=== PATIENT | female | born 1980 | race Caucasian/White ===

== ENCOUNTER 2020-08-17 19:05 | Emergency (ER) | payer OTHER ==
[~2020-08-17 19:05] MED LIST: BENTYL 20MG TAB20 MG PO; FLONASE 0.05% N16 GM; IBU400 MG PO; TESSALON PERLE100 MG PO; ZOFRAN 4 MG TAB4 MG PO; ZOFRAN4 MG PO
[2020-08-17 21:01] LABS: RED BLOOD COUNT 4.89 M/UL (4.00-5.10); WHITE BLOOD COUNT 13.3 K/UL (4.5-11.0)
[2020-08-17 21:16] LABS: BUN/CREATININE RATIO 34 (0-10)
[2020-08-17] MEDS ORDERED: VENTOLIN HFA 66.7 GM INH (22:52)
[2020-08-17] MEDS ORDERED: TESSALON PERLE100 MG PO (22:52)
[2020-08-17] MEDS ORDERED: PREDNISONE 50 M50 MG PO (22:52)
== END 2020-08-18 00:20 | disposition home or self-care (01) ==
LOC: ER1 19:05
PROVIDERS: Physician Assistant
DX: J06.9 Acute upper respiratory infection, unspecified (principal); R11.2 Nausea with vomiting, unspecified; R42 Dizziness and giddiness; Z20.822 Contact with and (suspected) exposure to COVID-19; Z87.442 Personal history of urinary calculi; Z90.49 Acquired absence of other specified parts of digestive tract; Z88.0 Allergy status to penicillin
CPT/HCPCS: 0240U; 36415; 71045; 80053; 82550; 82553; 83605; 83690; 83735; 83874; 84484; 85025; 85652; 86140; 87040; 93005; 96374; 96375; 99284; J1885; J2405

== ENCOUNTER 2020-09-16 06:22 | Emergency (ER) | payer OTHER ==
[~2020-09-16 06:22] MED LIST changes: +PREDNISONE 50 M50 MG PO; +VENTOLIN HFA 66.7 GM INH
[2020-09-16 08:24] LABS: HEMOGLOBIN 13.3 gm/dl (12.3-15.3); RED BLOOD COUNT 4.36 M/UL (4.00-5.10); WHITE BLOOD COUNT 10.7 K/UL (4.5-11.0)
[2020-09-16 08:44] LABS: BUN/CREATININE RATIO 26 (0-10)
[2020-09-16] MEDS ORDERED: HYDROCODON-ACE1 EAC4 PO (11:02)
[2020-09-16] MEDS ORDERED: BACTROBAN OINT22 GM EXT (11:05)
== END 2020-09-16 11:30 | disposition home or self-care (01) ==
LOC: ER1 06:22
PROVIDERS: Emergency Medicine
DX: S13.4XXA Sprain of ligaments of cervical spine, initial encounter (principal); S30.1XXA Contusion of abdominal wall, initial encounter; S80.11XA Contusion of right lower leg, initial encounter; S60.811A Abrasion of right wrist, initial encounter; S60.511A Abrasion of right hand, initial encounter; Z23 Encounter for immunization; F17.290 Nicotine dependence, other tobacco product, uncomplicated; V49.40XA Driver injured in collision with unspecified motor vehicles in traffic accident, initial encounter
CPT/HCPCS: 29125; 70450; 71046; 72125; 73110; 73130; 73590; 80053; 81001; 82550; 82553; 83874; 84484; 84703; 85025; 90471; 90715; 96374; 96375; 99284; J2270; J2405; Q9967

== ENCOUNTER 2021-06-03 06:23 | Emergency (ER) | payer SELFPAY ==
[~2021-06-03 06:23] MED LIST changes: +BACTROBAN OINT22 GM EXT; +HYDROCODON-ACE1 EAC4 PO
[2021-06-03 07:43] LABS: HEMOGLOBIN 13.4 gm/dl (12.3-15.3); RED BLOOD COUNT 4.59 M/UL (4.00-5.10); WHITE BLOOD COUNT 10.3 K/UL (4.5-11.0)
[2021-06-03 08:05] LABS: BUN/CREATININE RATIO 21 (0-10)
[2021-06-03] MEDS ORDERED: ZOFRAN ODT 4 MG4 MG GT (10:17)
== END 2021-06-03 10:40 | disposition home or self-care (01) ==
LOC: ER1 06:23
PROVIDERS: Family Medicine
DX: R55 Syncope and collapse (principal); R11.2 Nausea with vomiting, unspecified; Z90.710 Acquired absence of both cervix and uterus; F17.290 Nicotine dependence, other tobacco product, uncomplicated
CPT/HCPCS: 70450; 80053; 81001; 82550; 82553; 83690; 84484; 85025; 93005; 96374; 99284; J2405; J7030

== ENCOUNTER 2021-08-07 13:03 | Inpatient (IN) | payer BC ==
[~2021-08-07] VITALS: Ht 160 cm; Wt 70.3 kg
[~2021-08-07 13:03] MED LIST changes: +ZOFRAN ODT 4 MG4 MG GT
[2021-08-07 13:31] LABS: HEMOGLOBIN 13.9 gm/dl (12.3-15.3); RED BLOOD COUNT 4.57 M/UL (4.00-5.10); WHITE BLOOD COUNT 9.5 K/UL (4.5-11.0)
[2021-08-08 04:44] LABS: WHITE BLOOD COUNT 10.4 K/UL (4.5-11.0)
[2021-08-08 04:45] LABS: HEMOGLOBIN 11.6 gm/dl (12.3-15.3); RED BLOOD COUNT 3.92 M/UL (4.00-5.10)
[2021-08-08 04:58] LABS: BUN/CREATININE RATIO 32 (0-10)
--- NOTE | 2021-08-08 15:51 | NUR ---
PT IS RESTING QUIETLY AT THIS TIME, DENIES NEEDS OR C/O AT THIS TIME.
[2021-08-09 05:56] LABS: HEMOGLOBIN 11.9 gm/dl (12.3-15.3); RED BLOOD COUNT 3.97 M/UL (4.00-5.10); WHITE BLOOD COUNT 10.5 K/UL (4.5-11.0)
[2021-08-09 06:16] LABS: BUN/CREATININE RATIO 24 (0-10)
--- NOTE | 2021-08-10 05:00 | NUR ---
PATIENT EXPERIENCING MORE PAIN THAN USUAL THIS SHIFT. I APPLIED A HEATING PATCH (THE ONES USED FOR BACKS) TO HER LOWER ABDOMEN WELL A WARM BLANKET. THIS BROUGHT HER SOME RELIEF ALONG WITH PAIN MEDICATION. THE PATIENT WAS ABLE TO GET SOME SLEEP.
[2021-08-10 06:51] LABS: RED BLOOD COUNT 4.01 M/UL (4.00-5.10); WHITE BLOOD COUNT 10.6 K/UL (4.5-11.0)
[2021-08-10 07:21] LABS: BUN/CREATININE RATIO 16 (0-10)
[2021-08-10] MEDS ORDERED: HYDROCODON-ACE1 EAC4 PO (09:30)
[2021-08-10] MEDS ORDERED: METHOCARBAMOL500 MG PO (09:30)
== END 2021-08-10 13:10 | disposition home or self-care (01) | DRG 690 ==
LOC: ER1 13:03 → MED SURG 4 16:32 → CDU 16:32 → MED SURG 4 21:48
PROVIDERS: Internal Medicine; Physician Assistant; ADMIT Internal Medicine
DX: N10 Acute pyelonephritis (principal); Z16.12 Extended spectrum beta lactamase (ESBL) resistance; Z20.822 Contact with and (suspected) exposure to COVID-19; B96.20 Unspecified Escherichia coli [E. coli] as the cause of diseases classified elsewhere; N83.201 Unspecified ovarian cyst, right side; F17.210 Nicotine dependence, cigarettes, uncomplicated; R31.9 Hematuria, unspecified; R39.11 Hesitancy of micturition; R11.0 Nausea; Z88.1 Allergy status to other antibiotic agents; Z88.0 Allergy status to penicillin; Z90.49 Acquired absence of other specified parts of digestive tract; Z74.01 Bed confinement status
CPT/HCPCS: 36415; 80048; 81001; 85025; 85027; 87040; 96372; 96374; 96375; 99285; J1335; J1650; J1885; J2270; J2405; J7030; J7120; U0002

== ENCOUNTER → 2021-08-11 | Outpatient (CLI) | payer BC, OTHER ==
[~2021-08-11] VITALS: Ht 157.5 cm; Wt 69.9 kg
[~2021-08-11] MED LIST changes: +METHOCARBAMOL500 MG PO
== END ==
LOC: OPSV 14:00
DX: N12 Tubulo-interstitial nephritis, not specified as acute or chronic (principal)
CPT/HCPCS: 96372; J1335

== ENCOUNTER → 2021-08-12 | Outpatient (CLI) | payer BC, OTHER ==
[~2021-08-12] VITALS: Ht 157.5 cm; Wt 69.9 kg
== END ==
LOC: OPSV 10:02
DX: N12 Tubulo-interstitial nephritis, not specified as acute or chronic (principal)
CPT/HCPCS: 96372; J1335

== ENCOUNTER → 2021-08-13 | Outpatient (CLI) | payer BC, OTHER | LOC: OPSV 07:25 | DX: Z53.9 Procedure and treatment not carried out, unspecified reason (principal) | CPT/HCPCS: 96372; J1335 ==

== ENCOUNTER → 2021-08-14 | Outpatient (CLI) | payer BC, OTHER ==
[~2021-08-14] VITALS: Ht 160 cm; Wt 70.3 kg
== END ==
LOC: EROP 08:13
DX: N12 Tubulo-interstitial nephritis, not specified as acute or chronic (principal); Z88.0 Allergy status to penicillin; Z88.1 Allergy status to other antibiotic agents
CPT/HCPCS: 96372; J1335

== ENCOUNTER → 2021-08-15 | Outpatient (CLI) | payer BC, OTHER ==
[~2021-08-15] VITALS: Ht 157.5 cm; Wt 69.9 kg
== END ==
LOC: OPSV 13:00
DX: N12 Tubulo-interstitial nephritis, not specified as acute or chronic (principal)
CPT/HCPCS: 96372; J1335

== ENCOUNTER → 2021-08-16 | Outpatient (CLI) | payer BC, OTHER | LOC: OPSV 13:00 | DX: Z53.9 Procedure and treatment not carried out, unspecified reason (principal) | CPT/HCPCS: 96372; J1335 ==

== ENCOUNTER → 2021-08-17 | Outpatient (CLI) | payer BC, OTHER ==
[~2021-08-17] VITALS: Ht 157.5 cm; Wt 69.9 kg
== END ==
LOC: OPSV 12:22
DX: Z53.9 Procedure and treatment not carried out, unspecified reason (principal)
CPT/HCPCS: 96372; J1335